=== PATIENT | female | born 1945 | race Two or more races ===

== ENCOUNTER 2017-11-06 06:00 | Day surgery (SDC) | payer OTHER ==
[~2017-11-06] VITALS: Ht 160 cm; Wt 80.7 kg
[~2017-11-06 06:00] MED LIST: ATENOLOL25 MG PO; LOSARTAN POTASS50 MG PO; METHOTREXATE2.5 MG PO; SYNTHROID88 MCG PO
[2017-11-06] MEDS ORDERED: PERCOCET 5-3251 EACH PO (12:18)
[2017-11-06] MEDS ORDERED: PROTONIX40 MG PO (12:18)
[2017-11-06] MEDS ORDERED: ZOFRAN ODT4 MG PO (12:18)
[2017-11-06] MEDS ORDERED: DICLOFENAC SODI50 MG PO (12:18)
== END 2017-11-06 13:00 | disposition home or self-care (01) ==
LOC: SURH 06:00 → CIR.AMB 06:00 → O/R 06:00 → EDSTATUS 08:45 → SURH 08:45 → CIR.AMB 13:00 → O/R 13:45 → SURH 16:15
DX: K80.10 Calculus of gallbladder with chronic cholecystitis without obstruction (principal)

== ENCOUNTER → 2018-01-21 | Emergency (ER) | payer OTHER ==
[~2018-01-21] VITALS: Ht 160 cm; Wt 81.6 kg
[~2018-01-21] MED LIST changes: +BUDESONIDE0.5 MG/2 M IH; +DICLOFENAC SODI50 MG PO; +LEVALBUTER1.25 MG/3 IH; +MEDROLPACK PO; +PERCOCET 5-3251 EACH PO; +PROMETHAZINE D118 ML PO; +PROTONIX40 MG PO; +ZOFRAN ODT4 MG PO
== END | disposition home or self-care (01) ==
LOC: ER 10:11
DX: J45.901 Unspecified asthma with (acute) exacerbation (principal); J06.9 Acute upper respiratory infection, unspecified; J11.1 Influenza due to unidentified influenza virus with other respiratory manifestations

== ENCOUNTER 2020-05-21 07:53 | Emergency (ER) | payer OTHER ==
[~2020-05-21] VITALS: Ht 160 cm; Wt 77.1 kg
== END 2020-05-21 10:48 | disposition home or self-care (01) ==
LOC: ER 07:53
DX: K29.60 Other gastritis without bleeding (principal); Z20.828 Contact with and (suspected) exposure to other viral communicable diseases

== ENCOUNTER 2020-06-27 19:19 | Emergency (ER) | payer OTHER ==
[~2020-06-27] VITALS: Ht 160 cm; Wt 77.1 kg
== END 2020-06-27 22:56 | disposition home or self-care (01) ==
LOC: ER 19:19
DX: K29.60 Other gastritis without bleeding (principal)

== ENCOUNTER 2021-04-04 08:53 | Emergency (ER) | payer OTHER ==
[~2021-04-04] VITALS: Ht 160 cm; Wt 72.6 kg
[2021-04-04] MEDS ORDERED: SYNTHROID100 MCG (09:00)
[2021-04-04] MEDS ORDERED: AVAPRO300 MG (09:00)
[2021-04-04] MEDS ORDERED: KLOR-CON 1010 MEQ PO (16:35)
[2021-04-04] MEDS ORDERED: [UNRECOGNIZED DRUG - OTHER] PO (16:35)
[2021-04-04] MEDS ORDERED: CARAFATE1 GM PO (16:35)
== END 2021-04-04 19:37 | disposition home or self-care (01) ==
LOC: ER 08:53
DX: K29.70 Gastritis, unspecified, without bleeding (principal); K21.9 Gastro-esophageal reflux disease without esophagitis

== ENCOUNTER 2021-04-09 09:26 | Inpatient (IN) | payer OTHER ==
[~2021-04-09] VITALS: Ht 160 cm; Wt 68.0 kg
[~2021-04-09 09:26] MED LIST changes: +AVAPRO300 MG; +CARAFATE1 GM PO; +KLOR-CON 1010 MEQ PO; +SYNTHROID100 MCG; +[UNRECOGNIZED DRUG - OTHER] PO
== END 2021-04-13 14:21 | disposition home or self-care (01) | DRG 440 ==
LOC: ER 09:26 → MEDJ 19:50
PROVIDERS: ADMIT Internal Medicine; ATTEND Internal Medicine
DX: K85.80 Other acute pancreatitis without necrosis or infection (principal); K21.9 Gastro-esophageal reflux disease without esophagitis; I10 Essential (primary) hypertension; E86.0 Dehydration; E87.6 Hypokalemia; Z20.822 Contact with and (suspected) exposure to COVID-19; E03.8 Other specified hypothyroidism

== ENCOUNTER 2023-01-03 21:12 | Emergency (ER) | payer OTHER ==
[~2023-01-03] VITALS: Ht 160 cm; Wt 78.0 kg
[2023-01-04] MEDS ORDERED: PEPCID AC20 MG PO (01:44)
[2023-01-04] MEDS ORDERED: PROTONIX20 MG PO (01:44)
[2023-01-04] MEDS ORDERED: CARAFATE1 GM PO (01:44)
== END 2023-01-04 02:35 | disposition home or self-care (01) ==
LOC: ER 21:12
DX: K29.60 Other gastritis without bleeding (principal)

== ENCOUNTER 2023-01-07 17:51 | Emergency (ER) | payer OTHER ==
[~2023-01-07] VITALS: Ht 160 cm; Wt 79.4 kg
[~2023-01-07 17:51] MED LIST changes: +PEPCID AC20 MG PO; +PROTONIX20 MG PO
== END 2023-01-07 21:58 | disposition home or self-care (01) ==
LOC: ER 17:51
DX: R10.13 Epigastric pain (principal); K57.30 Diverticulosis of large intestine without perforation or abscess without bleeding; K29.70 Gastritis, unspecified, without bleeding

== ENCOUNTER 2023-01-15 03:41 | Emergency (ER) | payer OTHER ==
[~2023-01-15] VITALS: Ht 160 cm; Wt 78.0 kg
== END 2023-01-15 09:53 | disposition home or self-care (01) ==
LOC: ER 03:41
DX: K29.70 Gastritis, unspecified, without bleeding (principal); I10 Essential (primary) hypertension

== ENCOUNTER → 2023-02-18 | Emergency (ER) | payer OTHER ==
[~2023-02-18] VITALS: Ht 160 cm; Wt 75.7 kg
[~2023-02-18] MED LIST changes: +CARAFATE1 GM; +DICY20TA; +LEVSIN/SL0.125 MG; +PROTONIX20 MG; +TENORMIN25 MG
== END | disposition left against medical advice (07) ==
LOC: ER 23:39
DX: Z53.21 Procedure and treatment not carried out due to patient leaving prior to being seen by health care provider (principal)

== ENCOUNTER 2023-04-03 07:09 | Outpatient (CLI) | payer OTHER | END 2023-04-03 07:10 | disposition home or self-care (01) | LOC: NUCLEAR 07:09 | DX: R14.0 Abdominal distension (gaseous) (principal) | CPT/HCPCS: 78264; A9541 ==